=== PATIENT | male | born 1955 | race Caucasian/White ===

== ENCOUNTER → 2020-06-29 | Outpatient (CLI) | payer MEDICARE ==
[~2020-06-29] MED LIST: ALPR1TAB6 PO; AMIO200T42 PO; CARV6.252 PO; FURO20TA3 PO; LISI40TA PO; METF10002 PO; PRAV40TA2 PO; WARF-36 PO
== END | disposition home or self-care (01) ==
LOC: RAD 07:13
PROVIDERS: ATTEND Internal Medicine Cardiovascular Disease
DX: I10 Essential (primary) hypertension (principal); E78.5 Hyperlipidemia, unspecified; E11.9 Type 2 diabetes mellitus without complications; I48.91 Unspecified atrial fibrillation; I25.10 Atherosclerotic heart disease of native coronary artery without angina pectoris
CPT/HCPCS: 71046

== ENCOUNTER 2020-11-14 04:54 | Emergency (ER) | payer MEDICARE ==
[~2020-11-14] VITALS: Ht 180.3 cm; Wt 124.0 kg
[~2020-11-14 04:54] MED LIST changes: +ALPR-585 PO; -ALPR1TAB6 PO; -LISI40TA PO; +LISI40TA9 PO
[2020-11-14] MEDS ORDERED: DIPH,PERTUSS(ACELL),TET VAC/PF 0.5 ML IM-VACC ONE ×2 (05:45→06:00)
[2020-11-14] MEDS ORDERED: NEOSPORIN OINT. PKT 1 PACKET ONE (05:45)
[2020-11-14] MEDS ORDERED: KETOROLAC 60 MG/2 ML ONE (05:54)
[2020-11-14] MEDS ORDERED: KETOROLAC 30 MG/1 ML IM ONE (06:00)
[2020-11-14 06:25] VITALS: BP 112/76
--- NOTE | 2020-11-14 07:00 | NUR ---
report of pt from prachi ahuja and assuming care of pt at this time.
== END 2020-11-14 07:33 | disposition home or self-care (01) ==
LOC: ED 06:10
DX: S91.312A Laceration without foreign body, left foot, initial encounter (principal); E11.9 Type 2 diabetes mellitus without complications; X58.XXXA Exposure to other specified factors, initial encounter; Y93.89 Activity, other specified; Y92.009 Unspecified place in unspecified non-institutional (private) residence as the place of occurrence of the external cause; Y99.8 Other external cause status
CPT/HCPCS: 90471; 90715; 96372; 99284; J1885